=== PATIENT | female | born 1985 | race African-American/Black ===

== ENCOUNTER 2021-02-07 18:08 | Emergency (ER) | payer SELFPAY ==
[2021-02-07 19:53] LABS: #Basophils 0.1 thou/uL (0.0-0.2); #Eosinphils 0.2 thou/uL (0.0-0.7); #Lymphocytes 2.6 thou/uL (1.20-3.40); #Monocytes 0.6 thou/uL (0.11-0.59); #Neutrophils 3.1 thou/uL (1.40-6.50); %Basophils 0.9 % (0.0-1.0); %Eosinophils 2.8 % (0.0-10.0); %Monocytes 9.8 % (0.0-10.0); %Neutrophils 47.6 % (42.0-75.0); Hemoglobin 11.6 g/dL (12.0-16.0); Mean Corpuscular HGB CONC 34.2 g/dL (32.0-36.0); Mean Corpuscular Hemoglobin 33.9 pg (27.0-31.0); Mean Corpuscular Volume 99.3 fL (78.0-98.0); Mean Platelet Volume 7.8 fL (7.4-10.4); Platelet Count 301 thou/uL (130-400); RBC Distribution Width 12.8 % (11.5-14.5); Red Blood Cell (RBC) Count 3.43 mill/uL (4.20-5.40); White Blood Cell (WBC) Count 6.6 thou/uL (4.8-10.8)
[2021-02-07] MEDS ORDERED: Sulfameth/Trimethoprim DS 800-160mg TAB ONE (20:18)
[2021-02-07] MEDS ORDERED: Cephalexin 250 MG CAP ONE (20:18)
== END 2021-02-07 20:22 | disposition home or self-care (01) ==
LOC: ERS 18:08
DX: T81.31XA Disruption of external operation (surgical) wound, not elsewhere classified, initial encounter (principal)
CPT/HCPCS: 36415; 85025; 99283

== ENCOUNTER 2023-06-13 20:51 | Emergency (ER) | payer BC, OTHER ==
[2023-06-13] MEDS ORDERED: Boostrix 0.5 ML (Tdap) VIAL (>/=7 yrs of age) ONE (22:08)
== END 2023-06-13 22:17 | disposition home or self-care (01) ==
LOC: ERS 20:51
DX: S61.051A Open bite of right thumb without damage to nail, initial encounter (principal); W50.3XXA Accidental bite by another person, initial encounter; Y99.0 Civilian activity done for income or pay; Z23 Encounter for immunization
CPT/HCPCS: 90471; 90715

== ENCOUNTER 2023-08-29 12:33 | Emergency (ER) | payer BC, OTHER ==
[2023-08-29] MEDS ORDERED: Ketorolac Tromethamine 30 MG (1 mL) VIAL ONE (12:51)
[2023-08-29] MEDS ORDERED: Metoclopramide HCl 10 MG TAB ONE (12:51)
[2023-08-29] MEDS ORDERED: Acetaminophen 500 MG TAB ONE (12:51)
== END 2023-08-29 15:24 | disposition home or self-care (01) ==
LOC: ERS 12:33
DX: B34.9 Viral infection, unspecified (principal); F17.290 Nicotine dependence, other tobacco product, uncomplicated; Z55.6 Problems related to health literacy
CPT/HCPCS: 96372; 99283; J1885

== ENCOUNTER → 2024-03-09 | Emergency (ER) | payer BC, OTHER ==
[~2024-03-09] MED LIST: Ibuprofen 800 MG TAB ONE
== END ==
LOC: ERS 16:26
DX: S89.91XA Unspecified injury of right lower leg, initial encounter (principal); F17.290 Nicotine dependence, other tobacco product, uncomplicated; W01.0XXA Fall on same level from slipping, tripping and stumbling without subsequent striking against object, initial encounter
CPT/HCPCS: 99283

== ENCOUNTER 2024-12-14 18:01 | Emergency (ER) | payer BC ==
[2024-12-14] MEDS ORDERED: Acetaminophen 325 MG TAB ONE (18:11)
[2024-12-14] MEDS ORDERED: Oxymetazoline HCl 0.05% (30 ML BOT) ONE (18:12)
== END 2024-12-14 18:18 | disposition home or self-care (01) ==
LOC: ERS 18:01
DX: U07.1 COVID-19 (principal); F17.290 Nicotine dependence, other tobacco product, uncomplicated
CPT/HCPCS: 99282

== ENCOUNTER 2025-01-24 08:27 | Emergency (ER) | payer BC | END 2025-01-24 10:30 | disposition home or self-care (01) | LOC: ERS 08:27 | DX: B34.9 Viral infection, unspecified (principal) | CPT/HCPCS: 87081; 87428; 87430; 99283 ==